=== PATIENT | female | born 1965 | race American Indian/Alaskan Native ===

== ENCOUNTER 2024-07-11 12:23 | Emergency (ER) | payer OTHER ==
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
--- NOTE | 2024-07-11 13:39 | XRAY Report ---
PROCEDURE: Ankle 1-2V RT INDICATIONS: recent fx. TECHNIQUE: 1 views of the ankle were acquired. COMPARISON: None. FINDINGS: Bones: Single casted image. Spiral distal tibial shaft and diametaphyseal fracture. Probable associa ilsa distal fibular fracture. Soft tissues: No evaluated on single AP view. IMPRESSION: Spiral distal tibial shaft/diametaphyseal fracture with probable associated distal fibular fracture. Comment: It is noted that the patient is scheduled to undergo a CT of the lower leg. Reviewed by: Buzz Monroe MD on 07/11/2024 1:38 PM PDT Approved by: Buzz Monroe MD on 07/11/2024 1:38 PM PDT Station ID: [id number]
[2024-07-11] MEDS: IBUPROFEN 600 MG TABLET PO STA ×2 (13:49→15:58)
[2024-07-11] MEDS: oxyCODONE 5 MG TABLET PO STA (13:49)
--- NOTE | 2024-07-11 14:55 | CT Report ---
PROCEDURE: Lower Extremity RT WO INDICATIONS: eval mid tib/fit to ankle TECHNIQUE: Noncontrast 3-mm axial sections acquired from the distal tibial shaft to the talar dome, with coronal and sagittal reformats. For radiation dose reduction, the following was used: automated exposure c ontrol, adjustment of mA and/or kV according to patient size. COMPARISON: None. FINDINGS: Image quality: Excellent. Bones: Spiral, mildly comminuted distal shaft fracture of the tibia extending to the diametaphyseal region with mild displacement. Associated mildly displaced proximal shaft fracture of the fibula. The re is a tiny well-corticated bony fragment inferior to the medial malleolus consistent with remote tr auma. Deformity of the distal fibula at the ankle is consistent with remote healed fracture. Ankle mo rtise is intact. Soft tissues: There is some soft tissue edema. No significant hemorrhage. No suggestion of developin g compartment syndrome. IMPRESSION: 1. Mildly comminuted spiral distal shaft fracture of the tibia with mild displacement. 2. Associated mildly displaced proximal shaft fracture of the fibula. 3. No acute fractures involving the joints. 4. Sequelae of remote trauma at the ankle. Reviewed by: Buzz Monroe MD on 07/11/2024 2:53 PM PDT Approved by: Buzz Monroe MD on 07/11/2024 2:53 PM PDT Station ID: [id number]
[2024-07-11 15:33] VITALS: BP 128/80; O2SAT 96
[2024-07-11] MEDS: ACETAMINOPHEN 325 MG TABLET PO STA (15:58)
== END 2024-07-11 16:28 | disposition home or self-care (01) ==
LOC: ED 12:23
DX: S82.241A Displaced spiral fracture of shaft of right tibia, initial encounter for closed fracture (principal); S82.831A Other fracture of upper and lower end of right fibula, initial encounter for closed fracture; V03.90XA Pedestrian on foot injured in collision with car, pick-up truck or van, unspecified whether traffic or nontraffic accident, initial encounter; Y93.89 Activity, other specified
CPT/HCPCS: 73600; 73700; 99282; 99283; A9270